=== PATIENT | male | born 1965 | race Caucasian/White ===

== ENCOUNTER 2016-06-20 14:01 | Emergency (ER) | payer SELFPAY ==
[2016-06-26] MEDS ORDERED: CATAPRES-DPS0.1 MG PO (11:37)
[2016-06-26] MEDS ORDERED: COLACE-DPS100 MG PO (11:37)
[2016-06-26] MEDS ORDERED: ALDACTONE DPS25 MG PO (11:37)
[2016-06-26] MEDS ORDERED: HYDRODIURIL-DPS50 MG PO (11:37)
[2016-06-26] MEDS ORDERED: PREVACID30 MG PO (11:38)
[2016-06-26] MEDS ORDERED: LORCET 5-325 M1 EACH PO (11:38)
[2016-06-26] MEDS ORDERED: ZESTRIL DPS40 MG PO (11:38)
--- NOTE | 2016-06-28 19:06 | ER ---
ADMIT: 06/20/2016 RM/LOC: ER [facility] MR#: [id number] [address] [place], [place] [address] MEL PARISI [address] [place] [address] Emergency Room Report SEX: M AGE: 50 : 1965 DATE: 06/20/2016 HISTORY OF PRESENT ILLNESS: The patient is a 50-year-old male with a past medical history of hypertension, came to the ER with occipital headaches which also close to bilateral temporal for the last 1 day. The patient also complains of transient nausea which is resolved. The patient denies any neck stiffness, neck pain, fever, head trauma, visual changes, or photophobia. Per patient, the pain started gradually and is very similar to the previous headache he has ever had. The patient did not take any medications for the pain. PHYSICAL EXAMINATION: GENERAL: The patient was in mild distress, sitting in the bed, answering questions. VITAL SIGNS: The patient was afebrile with temperature of 97.7. Blood pressure was elevated to 197/123. HEENT: There was no papilledema in the physical examination. Pupils are 3 mm, reactive to light. NECK: Soft. No meningismus. Jolt test is negative. HEART: Normal heart sounds without any murmurs. LUNGS: Clear. ABDOMEN: Soft. NEUROLOGIC: No focal neurologic or sensory deficit. The rest of neuro exam was negative. DISPOSITION: The patient received morphine IM and also Benadryl IM and the pain was sufficiently controlled. The patient was re-examined and did not develop any focal neurological deficit. The patient is stable to be discharged home to be followed by the primary doctor. Riccardo Felder MD/ thomas JOB #: [id number] CC: Nacho Schafer MD, Attending Physician Mir Weber MD, Family Physician
== END 2016-06-20 16:30 | disposition home or self-care (01) ==
LOC: ER 14:01
DX: R51 Headache (principal); G89.29 Other chronic pain; Z98.890 Other specified postprocedural states; Z88.6 Allergy status to analgesic agent; Z79.899 Other long term (current) drug therapy

== ENCOUNTER 2016-06-20 23:40 | Inpatient (IN) | payer SELFPAY ==
[~2016-06-20] VITALS: Ht 167.6 cm; Wt 79.1 kg
--- NOTE | ~2016-06-20 | DS ---
ADMIT: 06/21/2016 RM/LOC: [facility] MR#: [id number] ACC#: [id number] [address] [facility] [address] [place], [place] [address] MEL PARISI [address] [place] [address] Discharge Summary SEX: M AGE: 50 : 1965 ADMISSION DATE: 06/21/2016 DISCHARGE DATE: 06/24/2016 SERVICES: Neurosurgery. REASON FOR ADMISSION: 1. Basal ganglia hemorrhage. 2. Intraventricular hemorrhage. CONSULTS: Kp Andres MD with [facility]. HOSPITAL COURSE: Mr. Parisi is a very pleasant gentleman who came into the ER this morning with a headache. His headache was treated and he was sent home. His headache worsened and he had nausea and vomiting and returned to the emergency room. A CT scan of his head was obtained and revealed a basal ganglia hemorrhage with intraventricular extension. Neurosurgery was consulted. He was admitted to the intensive care unit for close monitoring and care. [facility] was consulted for co-management of his comorbidities and hypertension. Later that morning, he was awake and alert. He was afebrile, and his vital signs were stable. He was moving all extremities x4 with 5/5 strength. He had a slight right facial droop and some word finding difficulties. He complained of headache behind his eyes. He was working with Physical Therapy, Occupational Therapy, and Speech Therapy and tolerating it well. Hospital day #2, he was awake and alert. He was oriented x4, he was moving all extremities x4 with 5/5 strength. He continued with the right facial droop. His blood pressure medications were adjusted. He was transferred out of the intensive care unit to the telemetry floor. He continued to work with the therapies. He remained hypertensive, and the medications were adjusted again. Hospital day #3, his medications were adjusted for blood pressure control. He was awake and alert. He was afebrile, and his vital signs were stable. He was moving all extremities x4 with 5/5 strength. He was frustrated and complained of a headache behind his eyes. Lortab was helpful. His carotid ultrasound revealed no stenosis. He continued to work with the therapies. Hospital day #4, he was awake and alert. He was afebrile, and his vital signs were stable. He was moving all extremities x4. He continued with a very slight right facial droop. He denied headache. He was urinating, ambulating, and defecating per his norm and was requesting discharge home. It was felt his blood pressures were controlled well and he was discharged home per his request. DISCHARGE CONDITION: Good. DISCHARGE MEDICATIONS: 1. Aldactone 50 mg daily. 2. Catapres 0.1 mg b.i.d. 3. Colace 100 mg b.i.d. 4. HydroDIURIL 50 mg daily. 5. Norvasc 10 mg daily. 6. Prevacid 30 mg daily. ADMIT: 06/21/2016 RM/LOC: [facility] MR#: [id number] [address] [place] [id number] MEL PARISI [facility] [place] [address] Discharge Summary SEX: M AGE: 50 : 1965 7. Zestril 40 mg b.i.d. 8. Hydrocodone 5/325 one p.o. q.4 hours p.r.n. DISCHARGE INSTRUCTIONS: (Per Dr. Nunez) he can have a regular diet. He may shower. He should utilize fall precautions. He should not drive. He will call with any questions or concerns including neurological worsening, signs or symptoms of infection, or any other issues. FOLLOWUP: He is supposed to follow up with his primary care physician in office in 7-10 days. He will follow up with Dr. Nunez in 1 month. DISPOSITION: He was discharged home. Total [id number] time for the discharge planning and care coordination was 30 minutes. Leia Layne APRN / Jayson Nunez MD / kat JOB #: [id number] CC: Jayson Nunez MD, Attending Physician Kp Andres MD, Family Physician
--- NOTE | ~2016-06-20 | ECH ---
Transthoracic Echocardiography Report (TTE) Demographics Patient Name MEL PARISI Date of Study 06/22/2016 Patient Number [id number] Visit Number [id number] Date of 1965 Room Number 504 Accession Number [id number] Gender Male Age 50 year(s) Referring Enrique Bach Salesman/Owner Windy Christine [facility] Physician MD Mckenna Malnoe MD Physician Interpreting Valentina Roman MD Breast Trimmer Physician Supervising Ordering Physician Enrique Bach MD/TEAGAN COLLINS Nurse Stress Socket Puller Conclusions Summary Technically adequate exam. The estimated left ventricular ejection fraction is 60-65%. Mild left ventricular hypertrophy. Diastolic assessment reveals Grade I diastolic dysfunction. Bubble study was done, there is no evidence for a PFO or ASD. No significant valvular abnormalities. Procedure Type of Study TTE procedure:Echo Complete SF. Procedure Date Date: 06/22/2016 Start: 02:08 PM Technical Quality: Adequate visualization Additional Indications:MRI multiple emboli Appropriate Use Criteria: 9 Contrast Medium: Bubble Study. Height: 66 inches Weight: 181 pounds BSA: 1.92 m Rhythm: Within normal limits HR: 61 bpm BP: 122/75 mmHg M-Mode/2D Measurements LV Diastolic Dimension: 5.2 cm LV Systolic Dimension: 2.62 cm LV Septum Diastolic: 1.32 cm LV PW Diastolic: 1.27 cm AO Root Dimension: 3.07 cm Cardiac Output: 4.47 l/min LA Dimension: 4 cm Cardiac Index: 2.33 l/min*m RV Diastolic Dimension: 3.79 cm LA volume index: 31 ml/m LVOT: 2.1 cm LVOT VTI: 21.18 cm RV Base: 3.5 cm LV Stroke volume: 73.32 ml RV Mid: 2.8 cm LV Stroke volume index: 38.19 ml/m RV Length: 8 cm TAPSE: 2.8 cm Doppler Measurements AV Peak Velocity: 1.59 m/s MV Peak E-Wave: 0.83 m/s AV Peak Gradient: 10.11 mmHg MV Peak A-Wave: 0.97 m/s AV Mean Gradient: 5.2 mmHg MV E/A Ratio: 0.86 LVOT Peak Velocity: 1.05 m/s MV P1/2t: 61.7 msec AV Area (Continuity):2.62 cm MV Deceleration Time: 273.5 msec TR Velocity:1.87 m/s MV Area (PHT): 3.57 cm TR Gradient:14.05 mmHg PV Peak Velocity: 0.97 m/s Estimated RAP:5 mmHg PV Peak Gradient: 3.77 mmHg Estimated RVSP: 19 mmHg Estimated PASP: 19.05 mmHg RA Area: 11.43 cm Findings Left Ventricle The left ventricle is normal in size . Mild left ventricular hypertrophy. Diastolic assessment reveals Grade I diastolic dysfunction. Right Ventricle Normal right ventricle structure and function. Left Atrium Normal left atrial size. Bubble study was done, there is no evidence for a PFO or ASD. Right Atrium Normal right atrial size. Mitral Valve Normal mitral valve structure and function. Mild mitral regurgitation by color Doppler. Aortic Valve Normal aortic valve structure and function. Tricuspid Valve Normal tricuspid valve structure and function. Trivial tricuspid regurgitation by color Doppler. Pulmonic Valve Normal pulmonic valve structure and function. Trivial pulmonic valve regurgitation by color Doppler. Pericardial Effusion No evidence of pericardial effusion. Miscellaneous Visualized portions of the aortic root and ascending aorta appear normal in size. Pleural Effusion No evidence of pleural effusion. Signature
--- NOTE | 2016-06-21 16:07 | CO ---
ADMIT: 06/21/2016 RM/LOC: 311 [facility] MR#: [id number] [id number] [place], [place] [address] MEL PARISI [address] [place] [address] Consultation SEX: M AGE: 50 : 1965 DATE OF CONSULTATION: 06/21/2016 ATTENDING PHYSICIAN: Jayson Nunez CONSULTING PHYSICIAN: Kp Andres MD CHIEF COMPLAINT: Headache and nausea. REASON FOR CONSULT: Medical management of high blood pressure in the setting of intraventricular hemorrhage. HISTORY OF PRESENT ILLNESS: The patient is a 50-year-old gentleman, who is very pleasant, normally follows with Dr. Lira as an outpatient. He had been on enalapril for about 6 months for his hypertension. Prior to this, felt he really quite okay. In the last 24 hours, started getting nausea, vomiting, and headache, severe. Presented to the emergency room and then re-presented as symptoms worsened. Denies any visual complaints currently. Just very nauseated. Severe headache, bilateral frontal. No fevers. No chills. No shortness of breath. No chest pain. He has not had anything similar in the past. Unclear really how long he has had high blood pressure other than he knows he has only been on medications for the last 6 months. Prior to this, he had been really quite healthy. Currently no weakness in any extremities. PAST MEDICAL HISTORY: 1. Hypertension. 2. History of left shoulder surgery, foot surgery, appendectomy, diverticulitis surgery. FAMILY HISTORY: Mother is , had high blood pressure issues. SOCIAL HISTORY: Nonsmoker. Nondrinking. Lives at home with his . REVIEW OF SYSTEMS: As per HPI. Otherwise, completely reviewed and negative. MEDICATIONS: Enalapril of unknown dose. PHYSICAL EXAMINATION: VITAL SIGNS: Currently his blood pressure is 129/70, on Cardene drip. At presentation it was 231/128, respiratory rate 20, pulse 71, temperature 98.7, and O2 saturation 95% on room air. GENERAL: He is alert and oriented x3. No acute distress. Pleasant gentleman. Interacts well. HEENT: Normocephalic, atraumatic. Pupils are equal bilaterally. No icterus. Dry mucous membranes. NECK: No lymphadenopathy. Soft, supple. Trachea midline. LUNGS: Clear to auscultation bilaterally. No wheezes, rales, or rhonchi. HEART: Regular rate and rhythm. No murmurs, rubs, or gallops. ABDOMEN: Soft, nontender, nondistended. Bowel sounds present. EXTREMITIES: No cyanosis, clubbing, or edema. MUSCULOSKELETAL: 5/5 strength in all 4 extremities. ADMIT: 06/21/2016 RM/LOC: 311 [facility] MR#: [id number] [address] [place] [id number] MEL PARISI [facility] [address] [place] [address] Consultation SEX: M AGE: 50 : 1965 NEUROLOGICAL: He has cranial nerves II through XII grossly intact without deficit. He moves all the extremities equally otherwise. LABORATORY AND X-RAY DATA: Creatinine 1.0. Total cholesterol 216. White count 11.9, hemoglobin 15.2. Potassium 4.1. A1c is 5.3. CT scan report of his head is reviewed. ASSESSMENT: 1. Intraventricular hemorrhage. 2. Hypertension and hypertensive urgency. PLAN: At this point in time, continue his Cardene drip. We will start some oral medications. Hopefully we can wean off the Cardene drip over the next 24 to 48 hours. Try to get good blood pressure control. We will switch over his IV fluids to normal saline without potassium as he will be started on KEESHA inhibitor. Check his BNP and follow closely. Continue to follow along while patient is hospitalized. Please call if questions. Discussed case with Neurosurgery at bedside. Kp Andres MD/ thomas JOB #: [id number] CC: Jayson Nunez, Attending Physician Kp Andres, Family Physician
[2016-06-26] MEDS ORDERED: COLACE-DPS100 MG PO (11:37)
[2016-06-26] MEDS ORDERED: ALDACTONE DPS25 MG PO (11:37)
[2016-06-26] MEDS ORDERED: CATAPRES-DPS0.1 MG PO (11:37)
[2016-06-26] MEDS ORDERED: HYDRODIURIL-DPS50 MG PO (11:37)
[2016-06-26] MEDS ORDERED: LORCET 5-325 M1 EACH PO (11:38)
[2016-06-26] MEDS ORDERED: ZESTRIL DPS40 MG PO (11:38)
[2016-06-26] MEDS ORDERED: PREVACID30 MG PO (11:38)
--- NOTE | 2016-06-28 08:50 | HP ---
ADMIT: 06/21/2016 RM/LOC: 311 [facility] MR#: [id number] 26[address] [facility] [address] [place], [place] [address] MEL PARISI [address] [place] [address] History and Physical SEX: M AGE: 50 : 1965 Correction: 06/21/2016 0853 kat DATE OF SERVICE: REASON FOR ADMIT: Cranial hemorrhage. HISTORY OF PRESENT ILLNESS: Mr. Parisi is a very pleasant gentleman, who has had a headache for the last day or so. He came in earlier today with some headache, nausea, and vomiting. He sees Dr. Lira for primary care. CT scan was obtained with repeat visit and hemorrhage was found. The patient speaks Kiswahili very poorly, his translates for him. PAST MEDICAL HISTORY: Hypertension, diverticulitis, appendectomy, colectomy. SOCIAL HISTORY: He is a nonsmoker, nondrinker. ALLERGIES: ASPIRIN. MEDICATIONS: Enalapril. FAMILY HISTORY: No history of neurosurgical disease. REVIEW OF SYSTEMS: A complete review of systems was obtained and annotated in the history of present illness. PHYSICAL EXAMINATION: VITAL SIGNS: Blood pressure 200/120, pulse 60s, respiring 18 times a minute, 97.4 degrees, 96% O2 saturation on room air. GENERAL: He is an otherwise healthy, age-appropriate appearing 50-year-old gentleman. HEENT: Atraumatic head. No scleral icterus. Clear oropharynx. LUNGS: Normal respiratory excursion. ABDOMEN: Soft abdomen. EXTREMITIES: 2+ bounding radial pulses. NEUROLOGICAL EXAMINATION: MENTAL STATUS: He is awake, alert, and oriented x4. He has no dysphonia, dysarthria, or aphasia. His affect is appropriate. His thought content is normal. CRANIAL NERVES: Cranial nerves II through XII are individually tested. He has a little bit of right-sided facial droop with activation, but really none at rest. Extraocular motility is intact. Pupils are equally round and reactive to light. Tongue is midline. Palate is equal. MOTOR EXAM: Motor exam appears to be 5/5 strength in bilateral upper and lower extremities, a little bit difficult to get him to follow directions during the exam due to some language barriers, but he does not appear to have a focal neurological deficit. CEREBELLUM: With language issues, I was unable to get him to comply with ADMIT: 06/21/2016 RM/LOC: 311 [facility] MR#: [id number] [address] [address] MEL PARISI [address] [place] [address] History and Physical SEX: M AGE: 50 : 1965 cerebellar testing. DEEP TENDON REFLEXES: 2/4 in the upper and lower extremities. SENSATION: Intact to light touch in the upper and lower extremities. ASSESSMENT AND PLAN: Mr. Parisi is a very pleasant, 50-year-old gentleman with a right-sided hemorrhage in the head of the caudate extending into the ventricle without hydrocephalus. He is not on anticoagulants. We will obtain a followup CTA in the next day and plan to follow him in the intensive care unit. He may need an external ventricular drain if he develops hydrocephalus. We will have Medicine consult for his chronic hypertension. Jayson Nunez MD/ thomas JOB #: [id number] CC: Jayson Nunez, Attending Physician Kp Andres, [facility] Physician Correction: 06/21/2016 0853 kat
--- NOTE | 2016-06-28 19:06 | ER ---
ADMIT: 06/21/2016 RM/LOC: 504 [facility] MR#: [id number] [address] [place], [place] [address] MEL PARISI [address] [place] [address] Emergency Room Report SEX: M AGE: 50 : 1965 CORRECTED: 06/27/2016 1028 [facility] DATE: 06/20/2016 HISTORY OF PRESENT ILLNESS: The patient is a 50-year-old male, came to the ER with chief complaint of headaches. The patient states headache started yesterday afternoon while he was taking a shower and at 1st, it was in the back of the head and just then after that, it went to the bitemporal area and sometimes it was in the front of the head and frontal area. Headache intensity waxes and wanes, and at the moment the headache is very severe, 10/10 in severity. The patient was in the ER this morning with a headache and pain was controlled, and the patient has a history of hypertension too and is compliant with medication, enalapril p.o. and after that, the patient was discharged to home. The patient had no focal neurological deficit and headache was controlled. The patient states the headache increased in severity and also became more severe in the frontal area this time and he had nausea and vomiting and came to the ER. PHYSICAL EXAMINATION: VITAL SIGNS: In the ER, the patient had elevated blood pressure; systolic blood pressure of 205, the diastolic blood pressure of 125. He is afebrile, and sitting in the bed quiet and answers all the questions. GENERAL: Alert, oriented to person, place, and time, no obvious signs of trauma. HEENT: Pupils are 3 mm, reactive to light bilaterally. NECK: Soft. LUNGS: Normal bilateral breath sounds. HEART: Normal S1, S2 without any murmurs. ABDOMEN: Soft. NEUROLOGICAL: Motor and sensory and cerebellar tests and cranial nerves are grossly normal. The patient has no focal neurological deficit. ADMIT: 06/21/2016 RM/LOC: 504 [facility] MR#: [id number] [address] [address] MEL PARISI [address] [place] [address] Emergency Room Report SEX: M AGE: 50 : 1965 IMAGING: CT of the head was suggestive of right basal ganglia bleeding which extend to the right ventricular bleed. Neurosurgery was contacted immediately. The patient received Vasotec 2.5 mg IV, which did not control the blood pressure and after that, received 10 mg labetalol IV. The patient was admitted to the Neurosurgery Service for further followups and treatments. At this stage, the patient had no focal neurological deficit and can protect airways. Neurosurgery Service at the moment, neurosurgeon is at the bedside and the patient is admitted. Riccardo Felder MD/ thomas JOB #: [id number] CC: Jayson Nunez MD, Attending Physician Kp Andres MD, Family Physician CORRECTED: 06/27/2016 1028 [facility]
== END 2016-06-24 14:00 | disposition home or self-care (01) | DRG 66 ==
LOC: ER 23:40 → 3ICU 06-21 01:30 → 5MS 06-23 01:08
PROVIDERS: ADMIT Neurological Surgery
PROC: 03HY32Z Insertion of Monitoring Device into Upper Artery, Percutaneous Approach (ICD-10-PCS; principal; 2016-06-21)
DX: I61.8 Other nontraumatic intracerebral hemorrhage (principal); I10 Essential (primary) hypertension; K57.90 Diverticulosis of intestine, part unspecified, without perforation or abscess without bleeding; R29.810 Facial weakness; I16.0 Hypertensive urgency